=== PATIENT | female | born 1955 | race Caucasian/White ===

== ENCOUNTER 2020-04-12 07:35 | Emergency (ER) | payer BC ==
[~2020-04-12] VITALS: Ht 160 cm; Wt 50.0 kg
[~2020-04-12 07:35] MED LIST: CHLO25CA10 PO; FOLI1TAB16 PO; LORA0.5T PO; MULT-1179 PO; ONDA8TAB9 PO; PROM12.512 PO; THI100T PO; TRAM50TA2 PO; TRAZ-251 PO; VENL-191 PO
[2020-04-12 08:15] LABS: URINE HCG NEGATIVE (NEG)
[2020-04-12 08:19] LABS: CLARITY,URINE CLEAR (Clear); COLOR,URINE YELLOW (Yellow); GLUCOSE, URINE NEGATIVE (Neg); KETONES,URINE TRACE mg/dl (Neg); LEUKOCYTE ESTERASE ,URINE NEGATIVE (Neg); NITRITES, URINE NEGATIVE (Neg); OCCULT BLOOD,URINE TRACE-INTACT (Neg); PROTEIN,URINE NEGATIVE (Neg); UROBILINOGEN,URINE 0.2 E.U/dL (0.2-1.0)
[2020-04-12 08:20] LABS: BASOPHILS # (AUTO) 0.1 X10'3 (0-0.2); BASOPHILS % (AUTO) 0.8 % (0-1); EOSINOPHILS # (AUTO) 0.1 X10'3 (0-0.9); HEMOGLOBIN 13.7 g/dl (12.0-16.0); LYMPHOCYTES # (AUTO) 1.4 X10'3 (1.1-4.8); LYMPHOCYTES % (AUTO) 21.6 % (21-51); MEAN CORPUSCULAR HEMOGLOBIN 32.4 PG (27.0-31.0); MEAN CORPUSCULAR HGB CONC 33.5 g/dL (33.0-36.5); MEAN CORPUSCULAR VOLUME 96.6 FL (78-98); MEAN PLATELET VOLUME 7.5 FL (7.4-10.4); MONOCYTES # (AUTO) 0.5 X10'3 (0-0.9); MONOCYTES % (AUTO) 8.1 % (2-12); NEUTROPHILS # (AUTO) 4.4 X10'3 (1.8-7.7); NEUTROPHILS % (AUTO) 68.5 % (42-75); PLATELET COUNT 186 X10'3 (140-440); RED BLOOD COUNT 4.24 X10'6 (4.20-5.60); RED CELL DISTRIBUTION WIDTH 13.6 % (11.5-14.5); WHITE BLOOD COUNT 6.4 X10'3 (4.5-11.0)
[2020-04-12 08:24] LABS: UA COLLECTION TYPE CLN CATCH MIDSTREAM
[2020-04-12 08:27] LABS: BACTERIA,URINE 1+ /HPF (Neg); MUCUS STRANDS NONE SEEN /LPF (Neg); RBC,URINE 0-2 /HPF (0-2); SQUAMOUS EPITHELIAL CELL,UR MODERATE /LPF (FEW); WBC,URINE 0-4 /HPF (0-4)
[2020-04-12 08:28] LABS: COARSE GRANULAR CAST 0-3 /LPF (NEGATIVE)
[2020-04-12 08:30] LABS: ALANINE AMINOTRANSFERASE 18 U/L (12-78); ALBUMIN 3.5 G/DL (3.4-5.0); ALBUMIN/GLOBULIN RATIO 0.9 (1.1-1.5); ALKALINE PHOSPHATASE 77 IU/L (46-116); ANION GAP 12 (8-16); ASPARTATE AMINO TRANSFERASE 15 U/L (10-37); BILIRUBIN,TOTAL 0.5 MG/DL (0.1-1.0); BLOOD UREA NITROGEN 7 MG/DL (7-18); BUN/CREATININE RATIO 9.7 (6.6-38.0); CHLORIDE 99 MMOL/L (99-107); CREATININE 0.72 MG/DL (0.40-0.90); GLUCOSE 125 MG/DL (70-104); LIPASE 290 U/L (73-393); POTASSIUM 3.2 MMOL/L (3.5-5.1); SODIUM 137 MMOL/L (135-145); TOTAL CARBON DIOXIDE 25.8 MMOL/L (24-32); TOTAL PROTEIN 7.4 G/DL (6.4-8.2); eGFR 82 ML/MIN
--- NOTE | 2020-04-12 08:49 | NUR ---
YANCI Irene at bedside. Pt states that she is an alcoholic, hadn't drank in some time and did have consume EtOH just prior to onset of symptoms.
[2020-04-12] MEDS ORDERED: pantoprazole 40mg Tablet.DR PO ONE (09:05)
[2020-04-12] MEDS ORDERED: mag hydrox/Alum hydrox/simeth 30ml oral suspension PO ONE (09:05)
[2020-04-12] MEDS ORDERED: normal saline 1000ML IV soln IVB ONE (09:05)
[2020-04-12] MEDS ORDERED: LIDOcaine Viscous 15ml cup MM ONE (09:05)
[2020-04-12 10:01] VITALS: BP 158/98
[2020-04-12] MEDS ORDERED: FAMO-49 PO (10:35)
[2020-04-12] MEDS ORDERED: DICY10CA88 PO (10:35)
[2020-04-12] MEDS ORDERED: ONDA4TAB6 PO (10:35)
--- NOTE | 2020-04-12 10:49 | NUR ---
Spoke to pt's , Josué. 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
== END 2020-04-12 10:51 | disposition home or self-care (01) ==
LOC: ER 07:36
DX: K29.70 Gastritis, unspecified, without bleeding (principal); F10.10 Alcohol abuse, uncomplicated; R11.2 Nausea with vomiting, unspecified; G89.29 Other chronic pain; F41.9 Anxiety disorder, unspecified; Z86.74 Personal history of sudden cardiac arrest; Z88.0 Allergy status to penicillin; Z88.8 Allergy status to other drugs, medicaments and biological substances; Z79.899 Other long term (current) drug therapy; Y90.9 Presence of alcohol in blood, level not specified
CPT/HCPCS: 36415; 80053; 81001; 81025; 83690; 85025; 96360; 99283; J7030

== ENCOUNTER 2020-04-17 08:01 | Inpatient (IN) | payer BC ==
[~2020-04-17] VITALS: Ht 160 cm; Wt 51.8 kg
[~2020-04-17 08:01] MED LIST changes: +DICY10CA88 PO; +FAMO-49 PO; +ONDA4TAB6 PO
[2020-04-17] MEDS ORDERED: normal saline 1000ML IV soln IV ONE (09:00)
[2020-04-17] MEDS ORDERED: pantoprazole 40 MG vial IV ONE (09:00)
[2020-04-17 09:35] LABS: PARTIAL THROMBOPLASTIN TIME 26 SECONDS (22-32)
[2020-04-17 09:36] LABS: EOSINOPHILS # (AUTO) 0.1 X10'3 (0-0.9); EOSINOPHILS % (AUTO) 1.6 % (0-6); HEMOGLOBIN 13.4 g/dl (12.0-16.0); LYMPHOCYTES # (AUTO) 0.9 X10'3 (1.1-4.8); LYMPHOCYTES % (AUTO) 19.3 % (21-51); MEAN CORPUSCULAR HEMOGLOBIN 32.6 PG (27.0-31.0); MEAN CORPUSCULAR HGB CONC 33.5 g/dL (33.0-36.5); MEAN CORPUSCULAR VOLUME 97.2 FL (78-98); MEAN PLATELET VOLUME 7.5 FL (7.4-10.4); MONOCYTES # (AUTO) 0.7 X10'3 (0-0.9); NEUTROPHILS # (AUTO) 2.7 X10'3 (1.8-7.7); NEUTROPHILS % (AUTO) 61.1 % (42-75); PLATELET COUNT 335 X10'3 (140-440); RED BLOOD COUNT 4.11 X10'6 (4.20-5.60); RED CELL DISTRIBUTION WIDTH 13.9 % (11.5-14.5); WHITE BLOOD COUNT 4.4 X10'3 (4.5-11.0)
--- NOTE | 2020-04-17 09:36 | NUR ---
discussed pt's c/o pain with edmdm patee; new orders received for morphine and zofran.
[2020-04-17 09:38] LABS: ALANINE AMINOTRANSFERASE 11 U/L (12-78); ALBUMIN/GLOBULIN RATIO 0.9 (1.1-1.5); ALKALINE PHOSPHATASE 61 IU/L (46-116); ANION GAP 7 (8-16); ASPARTATE AMINO TRANSFERASE 13 U/L (10-37); BILIRUBIN,TOTAL 0.3 MG/DL (0.1-1.0); BLOOD UREA NITROGEN 6 MG/DL (7-18); BUN/CREATININE RATIO 8.5 (6.6-38.0); CALCIUM 8.4 MG/DL (8.5-10.1); CHLORIDE 104 MMOL/L (99-107); CREATININE 0.71 MG/DL (0.40-0.90); GLUCOSE 93 MG/DL (70-104); POTASSIUM 3.8 MMOL/L (3.5-5.1); SODIUM 140 MMOL/L (135-145); TOTAL CARBON DIOXIDE 29.4 MMOL/L (24-32); TOTAL PROTEIN 6.4 G/DL (6.4-8.2); eGFR 83 ML/MIN
[2020-04-17] MEDS ORDERED: ondansetron/PF 4mg/2ml inj IV ONE (09:40)
[2020-04-17] MEDS ORDERED: morphine 4 MG/ML inj SYRINge IV ONE (09:40)
[2020-04-17 09:52] LABS: CLARITY,URINE SLIGHTLY CLOUDY (Clear); COLOR,URINE YELLOW (Yellow); GLUCOSE, URINE NEGATIVE (Neg); KETONES,URINE TRACE mg/dl (Neg); LEUKOCYTE ESTERASE ,URINE NEGATIVE (Neg); NITRITES, URINE NEGATIVE (Neg); OCCULT BLOOD,URINE NEGATIVE (Neg); PROTEIN,URINE NEGATIVE (Neg); UROBILINOGEN,URINE 0.2 E.U/dL (0.2-1.0)
[2020-04-17 09:56] LABS: UA COLLECTION TYPE VOIDED
[2020-04-17 09:57] LABS: BACTERIA,URINE FEW /HPF (Neg); MUCUS STRANDS FEW /LPF (Neg); RBC,URINE NONE SEEN /HPF (0-2); SQUAMOUS EPITHELIAL CELL,UR NONE SEEN /LPF (FEW); TRANSITIONAL EPI CELLS,URINE FEW /HPF; WBC,URINE 0-4 /HPF (0-4)
[2020-04-17 09:57] LABS: OCCULT BLOOD STOOL POSITIVE (Neg)
[2020-04-17 09:58] LABS: AMORPHOUS URATES 2+; HYALINE CASTS 0-3 /LPF (NEGATIVE)
[2020-04-17] MEDS ORDERED: DESV50TA10 PO (11:47)
[2020-04-17] MEDS ORDERED: octreotide inj. 500 MCG in normal saline 100ml IV soln 100 ML IV SCH (11:55)
[2020-04-17] MEDS ORDERED: octreotide 100mcg/1 ml ampule IV ONE (11:55)
[2020-04-17] MEDS ORDERED: NORMAL SALINE IV SCH (12:15)
[2020-04-17] MEDS ORDERED: OCTREOTIDE IV SCH (12:15)
[2020-04-17] MEDS ORDERED: DICY10CA88 PO (12:20)
[2020-04-17] MEDS ORDERED: OMEP-50 PO (12:20)
[2020-04-17] MEDS ORDERED: FAMO20TA8 PO (12:20)
[2020-04-17] MEDS ORDERED: ONDA-103 PO (12:20)
--- NOTE | 2020-04-17 13:02 | NUR ---
AT BEDSIDE, VS UPDATED AND MEDS GIVEN
[2020-04-17] MEDS ORDERED: acetaminophen 325mg tablet PO PRN ×2 (13:25)
[2020-04-17] MEDS ORDERED: ondansetron/PF 4mg/2ml inj IV PRN (13:25)
[2020-04-17] MEDS ORDERED: potassium CL 10mEq/100ml bag 100 ML IV PRN ×2 (13:25)
[2020-04-17] MEDS ORDERED: magnesium Cl slow-release 64mg tablet PO PRN (13:25)
[2020-04-17] MEDS ORDERED: magnesium 4gm in 100ml NS 100 ML IV PRN (13:25)
[2020-04-17] MEDS ORDERED: diphenhydrAMINE 25mg capsule PO PRN (13:25)
[2020-04-17] MEDS ORDERED: mag hydrox/Alum hydrox/simeth 30ml oral suspension PO PRN (13:25)
[2020-04-17] MEDS ORDERED: magnesium 2GM in 50ml NS 50 ML IV PRN (13:25)
[2020-04-17] MEDS ORDERED: acetaminophen 650mg rectal suppository RC PRN (13:25)
[2020-04-17] MEDS ORDERED: magnesium hydroxide 30ml (MOM) UD suspension PO PRN (13:25)
[2020-04-17] MEDS ORDERED: diphenhydrAMINE 50 mg/ml inj IV PRN (13:25)
[2020-04-17] MEDS ORDERED: potassium Cl 20 mEq SR tablet PO PRN ×2 (13:25)
[2020-04-17] MEDS ORDERED: bisacodyl 10mg suppository rectal RC PRN (13:25)
[2020-04-17] MEDS ORDERED: morphine 2 MG/ML inj. syringe IV PRN (13:25)
[2020-04-17] MEDS ORDERED: metoclopramide 5 mg/ml inj IV PRN (13:25)
[2020-04-17 13:56] LABS: HEMOGLOBIN A1C 5.4 % (4.5-6.2)
[2020-04-17] MEDS: morphine 2 MG/ML inj. syringe IV PRN (14:32)
--- NOTE | 2020-04-17 14:36 | NUR ---
PT COMPALINING OF PAIN AND NAUSEA, PT GIVEN MORPHINE AND ZOFRAN AND VS UPDATED
--- NOTE | 2020-04-17 15:15 | NUR ---
Received pt via WC from ED. Pt awake A&O amb independently to bathroom to void. Discussed POC pt verbalizes understanding.
[2020-04-17 16:15] VITALS: BP 117/63
[2020-04-17] MEDS: normal saline 1000ml 1,000 ML IV SCH ×2 (16:42→23:23)
--- NOTE | 2020-04-17 18:07 | NUR ---
Problems reprioritized. Patient report given, questions answered & plan of care reviewed with JESSICA Shaw.
[2020-04-17] MEDS: pantoprazole 40MG/NS 100ML BAG 100 ML IV SCH ×2 (18:42→22:18)
[2020-04-17] MEDS: HYDROcodone/acetaminophen 5mg/325mg tablet PO PRN (18:42)
[2020-04-17 20:00] VITALS: BP 143/86
[2020-04-17] MEDS: K and/or MAG REPLACEMENT MC SCH (20:00)
[2020-04-17] MEDS: dicyclomine 10 MG capsule PO SCH (20:27)
[2020-04-17] MEDS: traZODone 150mg tablet PO SCH (20:27)
[2020-04-17] MEDS: venlafaxine 25mg tablet PO SCH (22:21)
[2020-04-18] VITALS (11 sets, daily range): BP systolic 117–153; BP diastolic 70–86
[2020-04-18] MEDS: pantoprazole 40MG/NS 100ML BAG 100 ML IV SCH ×6 (02:39→23:54)
[2020-04-18] MEDS: normal saline 1000ml 1,000 ML IV SCH ×3 (02:39→23:54)
[2020-04-18 06:06] LABS: BASOPHILS # (AUTO) 0.1 X10'3 (0-0.2); BASOPHILS % (AUTO) 1.5 % (0-1); EOSINOPHILS # (AUTO) 0.1 X10'3 (0-0.9); EOSINOPHILS % (AUTO) 2.9 % (0-6); HEMATOCRIT 34.3 % (35.0-45.0); HEMOGLOBIN 11.5 g/dl (12.0-16.0); LYMPHOCYTES # (AUTO) 1.5 X10'3 (1.1-4.8); LYMPHOCYTES % (AUTO) 39.1 % (21-51); MEAN CORPUSCULAR HEMOGLOBIN 32.9 PG (27.0-31.0); MEAN CORPUSCULAR HGB CONC 33.7 g/dL (33.0-36.5); MEAN CORPUSCULAR VOLUME 97.6 FL (78-98); MEAN PLATELET VOLUME 7.4 FL (7.4-10.4); MONOCYTES # (AUTO) 0.6 X10'3 (0-0.9); MONOCYTES % (AUTO) 16.2 % (2-12); NEUTROPHILS # (AUTO) 1.5 X10'3 (1.8-7.7); NEUTROPHILS % (AUTO) 40.3 % (42-75); PLATELET COUNT 287 X10'3 (140-440); RED BLOOD COUNT 3.51 X10'6 (4.20-5.60); RED CELL DISTRIBUTION WIDTH 13.8 % (11.5-14.5); WHITE BLOOD COUNT 3.8 X10'3 (4.5-11.0)
[2020-04-18 06:20] LABS: ALANINE AMINOTRANSFERASE 9 U/L (12-78); ALBUMIN 2.4 G/DL (3.4-5.0); ALBUMIN/GLOBULIN RATIO 0.8 (1.1-1.5); ALKALINE PHOSPHATASE 53 IU/L (46-116); ANION GAP 7 (8-16); ASPARTATE AMINO TRANSFERASE 12 U/L (10-37); BILIRUBIN,TOTAL 0.3 MG/DL (0.1-1.0); BLOOD UREA NITROGEN 3 MG/DL (7-18); BUN/CREATININE RATIO 4.8 (6.6-38.0); CALCIUM 8.1 MG/DL (8.5-10.1); CHLORIDE 109 MMOL/L (99-107); CHOL/HDL RATIO 4.2 (0.00-4.99); CHOLESTEROL 160 MG/DL (0-200); CREATININE 0.62 MG/DL (0.40-0.90); GLUCOSE 97 MG/DL (70-104); HDL CHOLESTEROL 38 MG/DL (35-60); LDL CHOLESTEROL 93 MG/DL (50-100); MAGNESIUM 1.7 MG/DL (1.5-2.4); PHOSPHORUS 4.2 MG/DL (2.3-4.5); POTASSIUM 4.2 MMOL/L (3.5-5.1); SODIUM 143 MMOL/L (135-145); TOTAL CARBON DIOXIDE 26.8 MMOL/L (24-32); TOTAL PROTEIN 5.3 G/DL (6.4-8.2); TRIGLYCERIDES 78 MG/DL (20-135); eGFR > 90 ML/MIN
--- NOTE | 2020-04-18 06:34 | NUR ---
Problems reprioritized. Patient report given, questions answered & plan of care reviewed with JESSICA Cohen.
--- NOTE | 2020-04-18 06:35 | NUR ---
Patient in room [facility]. I have received report from JESSICA ZABALA and had the opportunity to ask questions and assume patient care.
[2020-04-18] MEDS: K and/or MAG REPLACEMENT MC SCH ×2 (08:00→20:00)
[2020-04-18] MEDS: HYDROcodone/acetaminophen 5mg/325mg tablet PO PRN (08:24)
[2020-04-18] MEDS: dicyclomine 10 MG capsule PO SCH ×2 (08:24→22:00)
[2020-04-18] MEDS: venlafaxine 25mg tablet PO SCH ×3 (08:24→21:58)
[2020-04-18] MEDS ORDERED: thiamine inj. 100 MG in normal saline 100ml IV soln 100 ML IV ONE (09:45)
[2020-04-18] MEDS ORDERED: LORazepam 1 MG tablet PO PRN (09:45)
[2020-04-18] MEDS ORDERED: LORazepam 2 mg/ml vial IV PRN (09:45)
[2020-04-18] MEDS ORDERED: fentaNYL/PF 50MCG/1 ML 2ML syringe ONE (17:47)
[2020-04-18] MEDS ORDERED: LIDOcaine Viscous 15ml cup ONE (17:47)
[2020-04-18] MEDS ORDERED: MIDAZolam 5mg/5ml vial ONE (17:47)
--- NOTE | 2020-04-18 18:46 | NUR ---
Problems reprioritized. Patient report given, questions answered & plan of care reviewed with JESSICA GUZMAN.
[2020-04-18] MEDS: morphine 2 MG/ML inj. syringe IV PRN (19:48)
[2020-04-18] MEDS: traZODone 150mg tablet PO SCH (21:59)
[2020-04-19] VITALS: BP 127/74
[2020-04-19] MEDS: HYDROcodone/acetaminophen 10/325mg tab PO PRN ×3 (00:02→10:41)
[2020-04-19] MEDS: pantoprazole 40MG/NS 100ML BAG 100 ML IV SCH ×2 (05:45→10:45)
[2020-04-19 06:10] LABS: BASOPHILS # (AUTO) 0.1 X10'3 (0-0.2); EOSINOPHILS # (AUTO) 0.1 X10'3 (0-0.9); EOSINOPHILS % (AUTO) 2.9 % (0-6); HEMOGLOBIN 10.5 g/dl (12.0-16.0); LYMPHOCYTES # (AUTO) 1.7 X10'3 (1.1-4.8); MEAN PLATELET VOLUME 7.2 FL (7.4-10.4); MONOCYTES # (AUTO) 0.5 X10'3 (0-0.9)
[2020-04-19 06:13] LABS: BASOPHILS % (AUTO) 2.1 % (0-1); HEMATOCRIT 31.2 % (35.0-45.0); LYMPHOCYTES % (AUTO) 43.5 % (21-51); MEAN CORPUSCULAR HEMOGLOBIN 32.9 PG (27.0-31.0); MEAN CORPUSCULAR HGB CONC 33.6 g/dL (33.0-36.5); MEAN CORPUSCULAR VOLUME 97.9 FL (78-98); MONOCYTES % (AUTO) 13.6 % (2-12); NEUTROPHILS # (AUTO) 1.5 X10'3 (1.8-7.7); NEUTROPHILS % (AUTO) 37.9 % (42-75); PLATELET COUNT 305 X10'3 (140-440); RED BLOOD COUNT 3.19 X10'6 (4.20-5.60); RED CELL DISTRIBUTION WIDTH 13.5 % (11.5-14.5); WHITE BLOOD COUNT 3.9 X10'3 (4.5-11.0)
[2020-04-19 06:18] LABS: ALANINE AMINOTRANSFERASE 12 U/L (12-78); ALBUMIN 2.3 G/DL (3.4-5.0); ALBUMIN/GLOBULIN RATIO 0.9 (1.1-1.5); ALKALINE PHOSPHATASE 48 IU/L (46-116); ANION GAP 9 (8-16); ASPARTATE AMINO TRANSFERASE 8 U/L (10-37); BILIRUBIN,TOTAL 0.2 MG/DL (0.1-1.0); BLOOD UREA NITROGEN 4 MG/DL (7-18); BUN/CREATININE RATIO 6.6 (6.6-38.0); CALCIUM 7.9 MG/DL (8.5-10.1); CHLORIDE 108 MMOL/L (99-107); CREATININE 0.61 MG/DL (0.40-0.90); GLUCOSE 72 MG/DL (70-104); MAGNESIUM 1.6 MG/DL (1.5-2.4); PHOSPHORUS 4.1 MG/DL (2.3-4.5); POTASSIUM 4.1 MMOL/L (3.5-5.1); SODIUM 143 MMOL/L (135-145); TOTAL CARBON DIOXIDE 26.4 MMOL/L (24-32); TOTAL PROTEIN 4.9 G/DL (6.4-8.2); eGFR > 90 ML/MIN
[2020-04-19] MEDS: K and/or MAG REPLACEMENT MC SCH (07:15)
[2020-04-19] MEDS: venlafaxine 25mg tablet PO SCH (07:30)
[2020-04-19] MEDS: dicyclomine 10 MG capsule PO SCH (07:30)
[2020-04-19 08:00] VITALS: BP 115/61
[2020-04-19] MEDS ORDERED: folic acid inj. 2 MG, thiamine inj. 100 MG, MVI, adult No.4 with vit. K 10 ML in dextro... IV SCH ×4 (08:00)
[2020-04-19] MEDS ORDERED: thiamine 100mg tablet PO SCH (09:46)
[2020-04-19] MEDS ORDERED: folic acid 1mg tablet PO SCH (09:46)
[2020-04-19] MEDS ORDERED: multivitamins, therapeutics tablet PO SCH (09:47)
[2020-04-19] MEDS: normal saline 1000ml 1,000 ML IV SCH (10:46)
[2020-04-19 11:55] VITALS: BP 127/67
[2020-04-19] MEDS ORDERED: FOLI0.4T2 PO (12:01)
[2020-04-19] MEDS ORDERED: THIA50TA10 PO (12:01)
[2020-04-19] MEDS ORDERED: PANT40TA4 PO (12:01)
[2020-04-19] MEDS ORDERED: MULT-1179 PO (12:01)
--- NOTE | 2020-04-19 14:30 | NUR ---
Patient discharged to home into the care of . Patient alert, oriented, and appropriate for discharge. Patient verbalized understanding of discharge instructions and will follow up with primary care provider within 3 days and will follow up with pathology results in 7 days, patient has MD's office number. Patient IV's removed. Patient left with all belongings. Medications sent to listed preferred pharmacy.
== END 2020-04-19 14:30 | disposition home or self-care (01) | DRG 379 ==
LOC: ER 08:02 → CANBEDREQ 12:59 → ED HOLD 13:23 → SUR 3N 15:10
PROVIDERS: ADMIT Family Medicine; ATTEND Family Medicine
PROC: 0DB28ZX Excision of Middle Esophagus, Via Natural or Artificial Opening Endoscopic, Diagnostic (ICD-10-PCS; principal; 2020-04-18)
PROC: 0DB68ZX Excision of Stomach, Via Natural or Artificial Opening Endoscopic, Diagnostic (ICD-10-PCS; 2020-04-18)
DX: K29.71 Gastritis, unspecified, with bleeding (principal); D64.9 Anemia, unspecified; F10.20 Alcohol dependence, uncomplicated; F41.8 Other specified anxiety disorders; G89.29 Other chronic pain; M54.9 Dorsalgia, unspecified; K21.0 Gastro-esophageal reflux disease with esophagitis; Z82.49 Family history of ischemic heart disease and other diseases of the circulatory system; Z86.73 Personal history of transient ischemic attack (TIA), and cerebral infarction without residual deficits; Z87.11 Personal history of peptic ulcer disease; Z87.891 Personal history of nicotine dependence; Z88.0 Allergy status to penicillin
CPT/HCPCS: 36415; 43239; 71045; 76937; 80053; 80061; 81001; 82272; 82948; 83036; 83735; 84100; 85025; 85610; 85730; 86885; 86900; 86901; 87081; 93005; 96361; 96365; 96375; 96376; 99152; 99285; A4620; C9113; G0378; J2250; J2270; J2354; J2405; J3010; J3411; J7030; J7040

== ENCOUNTER 2020-04-23 15:25 | Emergency (ER) | payer BC ==
[~2020-04-23] VITALS: Ht 160 cm; Wt 50.9 kg
[~2020-04-23 15:25] MED LIST changes: +DESV50TA10 PO; -FAMO-49 PO; +FOLI0.4T2 PO; -FOLI1TAB16 PO; -LORA0.5T PO; +ONDA-103 PO; -ONDA4TAB6 PO; -ONDA8TAB9 PO; +PANT40TA4 PO; -THI100T PO; +THIA50TA10 PO; -TRAM50TA2 PO
[2020-04-23 16:20] LABS: BASOPHILS # (AUTO) 0.1 X10'3 (0-0.2); BASOPHILS % (AUTO) 1.1 % (0-1); EOSINOPHILS % (AUTO) 0.3 % (0-6); LYMPHOCYTES # (AUTO) 1.8 X10'3 (1.1-4.8); LYMPHOCYTES % (AUTO) 24.6 % (21-51); MEAN CORPUSCULAR HEMOGLOBIN 33.4 PG (27.0-31.0); MEAN CORPUSCULAR HGB CONC 34.2 g/dL (33.0-36.5); MEAN CORPUSCULAR VOLUME 97.6 FL (78-98); MEAN PLATELET VOLUME 7.7 FL (7.4-10.4); MONOCYTES # (AUTO) 0.7 X10'3 (0-0.9); MONOCYTES % (AUTO) 9.9 % (2-12); NEUTROPHILS # (AUTO) 4.7 X10'3 (1.8-7.7); NEUTROPHILS % (AUTO) 64.1 % (42-75); PLATELET COUNT 588 X10'3 (140-440); WHITE BLOOD COUNT 7.3 X10'3 (4.5-11.0)
[2020-04-23 16:25] LABS: ALANINE AMINOTRANSFERASE 19 U/L (12-78); ALBUMIN 3.4 G/DL (3.4-5.0); ALBUMIN/GLOBULIN RATIO 0.9 (1.1-1.5); ALKALINE PHOSPHATASE 80 IU/L (46-116); AMYLASE 52 U/L (25-115); ANION GAP 14 (8-16); ASPARTATE AMINO TRANSFERASE 18 U/L (10-37); BILIRUBIN,TOTAL 0.3 MG/DL (0.1-1.0); BLOOD UREA NITROGEN 6 MG/DL (7-18); BUN/CREATININE RATIO 7.1 (6.6-38.0); CALCIUM 9.4 MG/DL (8.5-10.1); CHLORIDE 102 MMOL/L (99-107); CREATININE 0.84 MG/DL (0.40-0.90); GLUCOSE 120 MG/DL (70-104); LIPASE 97 U/L (73-393); POTASSIUM 3.6 MMOL/L (3.5-5.1); SODIUM 138 MMOL/L (135-145); TOTAL CARBON DIOXIDE 22.2 MMOL/L (24-32); TOTAL PROTEIN 7.3 G/DL (6.4-8.2); eGFR 68 ML/MIN
[2020-04-23 16:34] LABS: CLARITY,URINE CLEAR (Clear); COLOR,URINE YELLOW (Yellow); GLUCOSE, URINE NEGATIVE (Neg); KETONES,URINE NEGATIVE (Neg); LEUKOCYTE ESTERASE ,URINE NEGATIVE (Neg); NITRITES, URINE NEGATIVE (Neg); OCCULT BLOOD,URINE NEGATIVE (Neg); PROTEIN,URINE NEGATIVE (Neg); UROBILINOGEN,URINE 0.2 E.U/dL (0.2-1.0)
--- NOTE | 2020-04-23 16:46 | NUR ---
Pt. states "feeling much better" "I think I just got overwhelmed and had a panic attack"
[2020-04-23 16:49] LABS: UA COLLECTION TYPE CLN CATCH MIDSTREAM
[2020-04-23 17:46] VITALS: BP 145/93
== END 2020-04-23 18:23 | disposition home or self-care (01) ==
LOC: ER 15:26
DX: R06.4 Hyperventilation (principal); R06.02 Shortness of breath; G89.29 Other chronic pain; F41.9 Anxiety disorder, unspecified; Z86.73 Personal history of transient ischemic attack (TIA), and cerebral infarction without residual deficits; Z72.89 Other problems related to lifestyle; Z88.0 Allergy status to penicillin; Z88.8 Allergy status to other drugs, medicaments and biological substances; Z79.899 Other long term (current) drug therapy
CPT/HCPCS: 36415; 80053; 81003; 82150; 83690; 85025; 99283